=== PATIENT | female | born 1950 | race African-American/Black ===

== ENCOUNTER → 2017-02-18 | Outpatient (CLI) | payer OTHER ==
[~2017-02-18] MED LIST: ACETAMINOPHEN325 M1 PO; ALVESCO6.1 INH; AMITRIPTYLINE H10 M1 PO; AMITRIPTYLINE H25 M2 PO; AMITRIPTYLINE H25 M4 PO; AMITRIPTYLINE H50 M3 PO; ASPIR 8181 MG PO; AUGMENTIN 500-1 EACH PO; AVEENO ANTI-IT118 ML TP; AVEENO INTENSE207 GM; AZATHIOPRINE50 MG PO; AZITHROMYCIN 2250 MG PO; CEPACOL SORE T1 EAC8 PO; COLACE 100 MG100 MG PO; COLACE1 EAC1; COLACE100 MG PO; COREG3.125 MG PO; COUMADIN 2 MG TA2 M1 PO; COUMADIN 2.5MG2.5 M1 PO; COUMADIN 4 MG TA4 M1 PO; COUMADIN 5 MG TA5 M1 PO; COUMADIN7.5 MG PO; DAILY VALUE1 EAC1 PO; DILTIAZEM ER180 M1 PO; ENDOCET 5-3251 EACH PO; ENOXAPARIN60 MG/0.1 SUBQ; FLOVENT HFA 1110 MCG INH; HYDROXYCHLOROQ200 M1 PO; IBUPROFEN 600600 M1 PO; IMURAN 50MG TAB50 M1 PO; LANOXIN 0.250.25 M1 PO; LASIX 20 MG TAB20 MG PO; LEVOXYL25 MCG PO; MIDODRINE HCL 55 M1 PO; MIDODRINE HCL2.5 M1; MIDODRINE HCL2.5 M1 PO; MUCINEX TA600 MG/TA2 PO; MUCUS RELIEF C400 MG PO; MULTIVITAMINS1 EAC7 PO; NEXIUM PO; NEXIUM20 M1; NORCO 5-325 TA1 EACH PO; OMEPRAZOLE20 M1 PO; PACERONE 200 M200 M1; PACERONE 200 M200 M1 PO; PERCOCET 5-3251 EACH PO; PREDNISONE 1 MG1 M1 PO; PREDNISONE 10 M10 M1 PO; PREDNISONE 5 MG5 M1 PO; PRENATAL PO; PRILOSEC 20 MG20 MG PO; PROAIR HFA8.5 GM INH; PROCARDIA10 MG PO; PROVENT SR1 EACH; SENNA8.6 MG PO; SORINE 80 MG TA80 M1 PO; SOTALOL 120 MG120 M1 PO; SOTALOL160 MG PO; TESSALON PERLE100 MG PO; TIKOSYN.125 PO; TIKOSYN.25 PO; TOPROL XL50 MG PO; TRAMADOL 50 MG50 MG PO; TUSSIONEX PENN473 ML PO; ULTRAM 50MG TAB50 MG PO; UNICOMPLEX M TA1 TA1 PO; VITAMIN C120 GM; VITAMIN D 5050000 I1 PO; VITAMIN D1000 UNI1 PO; VITAMIN D35000 UNI1 PO; VITAMIN D5000 UNIT PO; WARFARIN NA; ZOFRAN ODT4 MG PO; ZYRTEC10 M2 PO; ZYRTEC10 MG PO; [UNRECOGNIZED DRUG - OTHER] PO
== END ==
LOC: RAD 15:38
DX: I51.7 Cardiomegaly (principal)